=== PATIENT | female | born 1990 | race African-American/Black ===

== ENCOUNTER 2019-06-16 14:05 | Emergency (ER) | payer OTHER ==
[~2019-06-16] VITALS: Ht 154.9 cm; Wt 59.0 kg
[~2019-06-16 14:05] MED LIST: IBUPROFEN 400400 M2 PO; ZOFRAN ODT4 MG PO
[2019-06-16] MEDS ORDERED: PROAIR HFA8.5 GM INH (16:31)
[2019-06-16] MEDS ORDERED: TESSALON PERLE100 M1 PO (16:31)
[2019-06-16] MEDS ORDERED: PREDNISONE 10 M10 MG PO (16:31)
[2019-06-16] MEDS ORDERED: AUGMENTIN 875-1 EACH PO (16:31)
[2019-06-16 16:44] VITALS: BP 118/72
== END 2019-06-16 16:46 | disposition home or self-care (01) ==
LOC: ER 14:05
DX: J40 Bronchitis, not specified as acute or chronic (principal); J32.9 Chronic sinusitis, unspecified; R09.89 Other specified symptoms and signs involving the circulatory and respiratory systems; F17.210 Nicotine dependence, cigarettes, uncomplicated